=== PATIENT | male | born 1995 | race American Indian/Alaskan Native ===

== ENCOUNTER 2017-06-02 16:22 | Emergency (ER) | payer OTHER ==
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
--- NOTE | 2017-06-02 19:32 | XRay Report ---
FINAL REPORT PROCEDURE: XR SPINE THORACIC 3V TECHNIQUE: Thoracic spine radiographs including AP, lateral, and Swimmer's views. CPT 73076 HISTORY: Back pain. COMPARISON: No prior studies are available for comparison. FINDINGS: Alignment: Normal . Vertebral body height: Normal . Disk spaces: Normal . Fracture(s): None . Bone mineralization: Normal . IMPRESSION: No radiographic evidence of acute abnormality.
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
--- NOTE | 2017-06-02 19:38 | XRay Report ---
FINAL REPORT PROCEDURE: XR KNEE 3V LT TECHNIQUE: LEFT knee radiographs, AP, lateral and oblique views. CPT 00480 HISTORY: Left knee pain. COMPARISON: No prior studies are available for comparison. FINDINGS: Fracture (s) and/or Dislocation(s): None . Alignment: Normal . Joint space(s): Normal . Soft tissues: Normal . Bone mineralization: Normal . Foreign bodies: None . IMPRESSION: No radiographic evidence of acute abnormality.
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
[2017-06-02] MEDS ORDERED: MOTRIN PO ONE (21:48)
[2017-06-02 22:06] VITALS: BP 132/82
== END 2017-06-02 22:18 | disposition home or self-care (01) ==
LOC: ED 16:22
DX: S16.1XXA Strain of muscle, fascia and tendon at neck level, initial encounter (principal); M54.6 Pain in thoracic spine; M25.562 Pain in left knee; M62.830 Muscle spasm of back; F12.10 Cannabis abuse, uncomplicated; V49.49XA Driver injured in collision with other motor vehicles in traffic accident, initial encounter; Y93.89 Activity, other specified; Y92.89 Other specified places as the place of occurrence of the external cause; Y99.8 Other external cause status
CPT/HCPCS: 70450; 71046; 72070; 72125